=== PATIENT | male | born 1940 | race Native Hawaiian/Other Pacific Islander ===

== ENCOUNTER 2021-09-13 10:49 | Inpatient (IN) | payer OTHER ==
[~2021-09-13] VITALS: Ht 185.4 cm; Wt 98.0 kg
--- NOTE | 2021-09-13 13:02 | NUR ---
INFOMRED BY ADMISSIONS PT WAS HERE WITH HIS TO BE ADMITTED. INFOMRED PCT PT WAS IN ADMISSIONS AWAITING ADMINSSIONS
--- NOTE | 2021-09-13 13:45 | NUR ---
PT AND OT AT BS PERFORMING EVAUL AT THIS TIME. REMAINS AT BS
[2021-09-13 14:36] LABS: PLATELET COUNT 219 K/uL (142-355)
[2021-09-13 15:10] LABS: POTASSIUM 3.6 mmol/L (3.6-5.2)
[2021-09-13 15:36] VITALS: BP 94/59; TEMP 97.9; Ht 185.4 cm; Wt 98.0 kg
--- NOTE | 2021-09-13 16:00 | NUR ---
DR MULLER IN ROOM AT THIS TIME
[2021-09-13 20:00] VITALS: BP 91/52; TEMP 97.9
[2021-09-13] MEDS ORDERED: ALLO100T22 PO (20:52)
[2021-09-13] MEDS ORDERED: ALOGLIPTIN12.5 MG PO (20:53)
[2021-09-13] MEDS ORDERED: AMLODIPINE BESYLATE PO (20:53)
[2021-09-13] MEDS ORDERED: ELIQUIS5 MG PO (20:54)
[2021-09-13] MEDS ORDERED: FURO40TA93 PO (20:56)
[2021-09-13] MEDS ORDERED: GABA300C2 PO (20:57)
[2021-09-13] MEDS ORDERED: GLIP10TA55 PO (20:58)
[2021-09-13] MEDS ORDERED: PANTOPRAZOLE 40MG TA PO (20:59)
[2021-09-13] MEDS ORDERED: METO50TA27 PO (20:59)
[2021-09-13] MEDS ORDERED: LANTUS100 UNIT/M SC (21:07)
[2021-09-13] MEDS ORDERED: TAMSULOSIN0.4 MG PO (21:08)
--- NOTE | 2021-09-13 22:00 | NUR ---
ASSISTED PATIENT TO BEDSIDE COMMODE. PATIENT HAS A SMALL FORMED BOWEL MOVEMENT AND VOIDED WITHOUT DIFFICULTY. PATIENT ASSISTED BACK TO BED. NO ACUTE DISTRESS NOTED AT THIS TIME. CALL LIGHT WITHIN REACH. WILL CONTINUE TO MONITOR.
--- NOTE | 2021-09-14 04:48 | NUR ---
New Swing bed patient and I talked with Lizet about this patient yesterday and is a 81YOM from [facility] facility and is 6'1" at 222.4 lbs. and BMI at 29.28 and is overweight and IBW = 184+/-10% (166 to 202 lbs.) and kcal needs for IBW x 25 = 2100, x 30 = 2500, x 35 = 2900, x 40 = 3300 kcal/day, protein needs x .8 to 1.5 = 67 to 125 grams per day and fluids x 25 to 40 = 2100 to 2200 ml/cc per day and is 121% of IBW. Diagnosis of post op GB, Bile Duct Cancer, obstruction of bile duct, HTN, Physical Deconditioning, and receives allopurinol, norvasc, Lasix, neurotin, Gluctorol, Lantus and other medications and RD reviewed all medications; labs reveal RBC, Hgb, Hct, Na, Ca and albumin all depressed and RDW, Creat 1.8, gl 193, total bilirubin, ast 62, alk po4 213 and all elevated, and also Dx. of DM II, atrial fib, chronic anticoagulant, abruction sleep apnea, , CKD, hyperbilirubinemia, weakness, and ate 50% of [address] Recommendations: 1-Monitor Labs 2-PT to work with the patient 3-OT to work with the patient 4-Make sure hydrated 5-Add MVI, 6-Add Vitamin C 500 mg BID 7-Add ZNSO4 220 mg per day and d/c in 14 days 8-Add Protein 30 ml/cc BID 9-Add a supplement if eating <75% of meals- a diabetic supplement 10-Add an appetite stimulant if not eating 75% of meals 11-Suggest a Dibaetic High Fiber diet with HBV protein foods Renal RD available as needed.
[2021-09-14 08:00] VITALS: BP 97/60; TEMP 98.3
--- NOTE | 2021-09-14 18:15 | NUR ---
LATE ENTRY 1700- PATIENT HAS HAD SEVERAL EPISODES OF HYPOTENSION WITH 1ST BLOOD PRESSURE READING 97/60, HR-81. MADE AWARE THAT LOPRESSOR AND NORVASC WERE HELD SECONDARY TO DECREASE IN PRESSURE AND FLOMAX AND LASIX GIVEN DUE TO PATIENTS SWELLING IN HIS ABDOMEN AND SCROTUM. ORDER GIVEN TO MONITOR B/P CLOSELY. PATIENT WAS IN HIGH FOWLERS POSITION IN THE BED WHEN ROUNDING AND STATED " I AM FEELING OK". REPEAT BLOOD PRESSURE AT LUNCH REVEALED A B/P 86/52. PATIENT IN NO ACUTE DISTRESS ALERT AND WATCHING TV. NOTIFIED AND STATED TO WATCH PATIENT. THIS AFTERNOON PATIENT NOTED RESTING QUIETLY IN BED WITH EYES CLOSED. REPEAT BLOOD PRESSURE AT 1650 SHOWED A B/P OF 84/49. NOTIFIED AND NEW ORDERS WERE GIVEN TO HOLD ALL MEDS, START IV AND GIVE A 1 LITER NS BOLUS OVER 4 HRS. MEDICATIONS WILL BE REVIEWED AGAIN IN THE MORNING. IV 20G X 1 ATTEMPT WITH NO SUCCESS TO THE RIGHT WRIST; IV 22G TO THE LEFT WRIST X1 ATTEMPT SUCCESSFUL WITH FLUIDS STARTED AT THIS TIME. PATIENT TALKING ON THE PHONE WITH FAMILY AND IS ALERT. WILL REASSESS POST FLUIDS FOR INCREASE IN BLOOD PRESSURE.
[2021-09-14 20:00] VITALS: BP 98/60; TEMP 99.2
--- NOTE | 2021-09-14 20:00 | NUR ---
VITAL SIGNS WERE TAKEN AT THIS TIME. BP IS 98/60. PT IS RECEIVING NS BOLUS AT 250 ML/HR FOR 4 HOURS. BLOOD SUGAR WAS CHECKED AND WAS 144. PM ASSESSMENT WAS DONE.
--- NOTE | 2021-09-14 21:11 | NUR ---
PCT AT BEDSIDE TO ASSIST PT TO BSC.
--- NOTE | 2021-09-14 23:30 | NUR ---
L LITER OF NS HAS COMPLETED INFUSION.
--- NOTE | 2021-09-15 02:00 | NUR ---
PT AWAKE AND STATES THAT HE IS FEELING BETTER. NOTED S/P SURGICAL GALLBLADDER REMOVED HEALING INCISIONS. INCISIONS ARE INTACT. NO REDNESS OR DRAINAGE NOTED AT THIS SITES.
[2021-09-15 20:00] VITALS: BP 102/58; TEMP 98.6
--- NOTE | 2021-09-15 21:07 | NUR ---
PT WITH COMPLAINTS OF FEELING CONSTIPATED. BOWEL SOUNDS ARE SLUGGISH IN LOWER ABDOMEN. PT WAS GIVEN WARM PRUNE JUICE. WILL MONITOR FOR RESULTS. PT STATES HE HAS NOT HAVE BM IN LAST TWO DAYS.
--- NOTE | 2021-09-15 23:36 | NUR ---
PT STATES HE IS FEELING SOME BETTER AFTER PRUNE JUICE. PT WAS SERVED APPLE JUICE TO INCREASE FIBER. MONITORING BLOOD SUGAR. PT TOOK PO BS MED PRIOR THIS SHIFT.
--- NOTE | 2021-09-16 02:50 | NUR ---
PT REPORTS HAVING A BOWEL MOVEMENT. PT STATES THAT HE IS "FEELING MUCH BETTER".
--- NOTE | 2021-09-16 05:02 | NUR ---
PT RESTING WTTH EYES CLOSED.
[2021-09-16 08:00] VITALS: BP 88/57; TEMP 98
--- NOTE | 2021-09-16 19:00 | NUR ---
LATE ENTRY: [facility] PATIENT WAS IN LOW FOWLERS POSITION RESTING WITH EYES CLOSED. LATE ENTRY: 819 PATIENT IN HIGH FOWLERS POSITION EATING BREAKFAST. PT V/O HE IS UNABLE TO EAT THE ANDERSON, HYDROLOGIC ENGINEER OFFERED TO CALL DIETARY FOR A DIFFERENT TYPE OF MEAT, PT REFUSED AT THIS TIME. AM ASSESSMENT COMPLETED. PATIENT'S DEPENDS WAS DRY. OFFERED TO ASSIST PT TO BSC, PT REFUSED BUT STATED HE WOULD CALL STAFF WHEN HE NEEDED ASSISTANCE. IV TO L WRIST FLUSHED WITH NS 10ML WITHOUT DIFFICULTY, NO REDNESS, EDEMA OR DRAINAGE NOTED TO IV SITE. STERI STRIPS TO ABDOMEN COVERED WITH TEGADERM AND INTACT WITH NO REDNESS NOTED TO SURGICAL SITE. PATIENT DENIES ANY PAIN, NEEDS OR C/O AT THIS TIME. CALL LIGHT AND BEDSIDE TABLE WITH PERSONAL BELONGINGS WITHIN REACH. DURING AM SHIFT, PATIENT CALLED AND REQUESTED STAFF TO CHANGE HIS DEPENDS ON 2 SEPERATE OCCASIONS. HYDROLOGIC ENGINEER QUESTIONED PATIENT ON WHY HE DID NOT CALL FOR ASSISTANCE TO THE BSC AND REMINDED HIM THE STAFF IS HERE TO ASSIST HIM WITH TOILETING NEEDS, PT V/O UNDERSTANDING. PATIENT'S BLOOD SUGAR WAS 69, PROVIDED ORANGE JUICE X2, GLIPIZIDE AND SEMGLEE HELD THIS AM. @ 1605 PATIENT IN HIGH FOWLERS POSITION SPEAKING ON HIS PERSONAL CELL PHONE. NAD NOTED WITH PATIENT AT THIS TIME.
[2021-09-16 21:20] VITALS: BP 97/52; TEMP 97.6
--- NOTE | 2021-09-17 02:07 | NUR ---
ROUNDS MADE. PT STATED THAT HES WASN"T FEELING WELL". JUST FEEL FUNNY. NO COMPLAINTS OF ANY PAIN OR DISCOMFORT. STATED THAT "HE JUST HASN'T FELT WELL TODAY". PT IS NOT EATING WELL. PT STATES, "HE DOESNT LIKE THE FOOD HERE AT THIS HOSPITAL". BLOOD SUGAR WAS CHECKED AND THE READING WAS 123. PT WAS ASSESSED. LUNGS CLEAR. HR IS REGULAR. ABDOMEN WITH ACTIVE BS. ABLE TO MOVE ALL EXREMITIES. BLOOD PRESSURE WAS CHECKED AND READING WAS 96/50. PT HAS HAD LOWER BP SINCE ADMISSION. LOPRESSOR IS NOT BEING GIVEN BECAUSE OF LOW BP. PT WAS GIVEN 1 CUP OF APPLE JUICE . PT STATED THAT HES WAS FEELING BETTER AFTER JUICE AND BEING REPOSITIONED IN BED. BEDSIDE TABLE AND CALL LIGHT PLACED IN EASY REACH.
--- NOTE | 2021-09-17 05:30 | NUR ---
PT INCONTINENT OF URINE. PT WAS CHANGED/CLEANED. PT REPOSITIONED IN BED. PT WAS GIVEN WATER TO DRINK. NO PROBLEMS WITH SWALLOWING. PT ABLE TO HOLD CUP HIMSELF..ASSESSED S/P SURGICAL SITES TO ABDOMEN. CLEAN AND DRY.
[2021-09-17 08:00] VITALS: BP 96/58; TEMP 99.8
--- NOTE | 2021-09-17 11:13 | NUR ---
09/17/21 1025 PHYSICAL THERAPY IN ROOM TO WORK WITH PATIENT.CC
--- NOTE | 2021-09-17 11:13 | NUR ---
09/17/21 1110 PT SITTING UP IN CHAIR PHYSICAL THERAPY IN ROOM,ENSURE GIVEN TO PATEINT AT HIS REQUEST.CALL LIGHT WITHIN REACH.CC
[2021-09-17 12:00] VITALS: BP 100/43; TEMP 98.7
--- NOTE | 2021-09-17 13:40 | NUR ---
09/17/21 1245 PT FAMILY PRESENT IN ROOM TO VISIT.ASSISTED PT BACK TO BED TOLERATED WELL.SON PRESENT IN ROOM STATED HE BROUGHT DAD SOME CHICKEN TO EAT BUT MADE HIM ALITTLLE SICK.CALL LIGHT WITHIN REACH.CC
--- NOTE | 2021-09-17 15:49 | NUR ---
09/17/21 1650 OT STATED PT REFUSED THERAPY THIS AFTERNOON SAID HE IS COLD AND JUST GOT BACK IN BED.BLANKET CARRIED TO ROOM FOR COMFORT.CALL LIGHT WITHIN REACH.CC
[2021-09-17 20:00] VITALS: BP 102/59; TEMP 98.5
[2021-09-18 08:00] VITALS: BP 111/65; TEMP 98.3
--- NOTE | 2021-09-18 08:35 | NUR ---
09/17/21 0820 RESTING IN BED E;YES CLOSED.NAD NOTED.CALL LIGHT WITHIN REACH.CC
--- NOTE | 2021-09-18 11:05 | NUR ---
09/18/21 1030 PT NOT FEELING WELL THIS AM DOESNOT WANT TO PARTICPATE WITH PHYSICAL THERAPY THIS MORNING.VS 99.1 89 94/48 93. NOTIFED NEW ORDERS RECEIVED FOR LABS AND CXR. 09/18/21 1100 PRESENT IN ROOM.LAB CAME IN COLLECT BLOOD FOR TEST.CC
[2021-09-18 11:09] LABS: PLATELET COUNT 192 K/uL (142-355)
[2021-09-18 11:28] LABS: POTASSIUM 4.2 mmol/L (3.6-5.2)
--- NOTE | 2021-09-18 13:59 | NUR ---
09/18/21 1350 RADIOLOGY NOTIFIED FOR PT TO BE TAKEN FOR EXRAY,PT REFUSED EARILER TO HAVE IT DONE.PT MEDICATED FOR PAIN AT THIS TIME MAY HELP RELAX PT PRIOR TO GOING FOR EXRAY.CC
--- NOTE | 2021-09-18 16:04 | NUR ---
09/18/21 1545 PT BREIF CHANGED WITH MODERATE URINE IN BRIEF.URINE COLLECTED IN CLEAN URINAL SENT TO LAB.BEDBATH GIVEN.SL TO RT WRIST WAS OUT APPLIED 2X2 SECURED WITH TAPE.CC
--- NOTE | 2021-09-18 17:04 | NUR ---
09/18/21 1650 SALINE LOCK STARTED TO RT AC 22GAUDGE TAPED AND SECURED WITH TEGADERM.TOLERATED WELL.CC
--- NOTE | 2021-09-18 17:07 | NUR ---
09/18/21 1645 NEW ORDERS PER FOR BOLUS OF FLUID AND RATE 125 TIMES 2 LITERS.MD PAVON OF EXVIANNEY AND UA.CC
--- NOTE | 2021-09-18 18:42 | NUR ---
09/18/21 1840 BOLUS IV NS INFUSING WITHOUT DIFFICULTY TO LT AC.CC
[2021-09-18 20:00] VITALS: BP 98/56; TEMP 98.6
[2021-09-19 08:00] VITALS: BP 91/59; TEMP 97.4
[2021-09-19 20:00] VITALS: BP 76/43; TEMP 98.3
[2021-09-20 08:00] VITALS: BP 91/56; TEMP 97.6
--- NOTE | 2021-09-20 13:08 | NUR ---
SPOKE TO MD REGARDING PT LABS NEW ORDERS GIVEN TO OBTAIN H/H EVRY FRIDAY UNLESS PT BECOMES SYMPTOMATIC THEN MD WILL NEED TO BE NOTIFIED. FOR MOR ORDERS. NEW ORDER GIVEN TO OBTAIN LABS FOR IRON, FOLATE, AND B12 LEVEL X 1 NOW
--- NOTE | 2021-09-20 17:31 | NUR ---
TB GIVEN TO LEFT FOREARM PER ORDER. PT TOLERATED WELL. WILL BE READ IN 48-72 HRS.
[2021-09-20 20:00] VITALS: BP 98/56; TEMP 99
--- NOTE | 2021-09-20 21:25 | NUR ---
PM MEDS GIVEN AT THIS TIME. PT TOLERATED WELL. PT WAS ABLE TO SWALLOW MEDS WHOLE AND GRAB MEDICINES AND WATER AFTER ENCOURAGED BY RECORDS COORDINATOR TO DO SO. PT. ABLE TO VERBALIZE UNDERSTANDING OF TASK AND NEEDS AT THIS TIME. PT IS A ONE PERSON ASSIST DURING MEDIDINE INTAKE. RECORDS COORDINATOR GRABBED WATER AND GAVE TO PT BUT PT WAS ABLE TO HOLD THE WATER FOR MEDICINE INTAKE AND PT. PUT WATER ON COUNTER BESIDE BED. PT WAS ABLE TO ADJUST INDEPENDENTLY TO A MORE COMFORTBALE POSITION IN BED. HEEL PROTECTORS BILATERALLY INTACT BY PT. 18 U OF INSULIN GIVEN DUE TO BS OF 375 ALONG WITH EVENING GLIPIZIDE.
--- NOTE | 2021-09-21 01:45 | NUR ---
IN PT'S ROOM TO CHANGE PT'S DEPENDS AT THIS TIME. PT. UNABLE AT THIS TIME TO GET UP THE BED SIDE COMMODE. COMPUTER DRAFTER AND LI CALDERON RN CHANGED PT WITH NEW DEPENDS AND UNDERPADDING UNDERNEATH PT. PT ABLE TO GRAB ON SIDE RAILS AFTER CUED BY COMPUTER DRAFTER FOR BRIEF CHANGE TO BOTH LEFT AND RIGHT SIDE INDEPENDENTLY. PT. HAS GOOD ATTITUDE AND COMPLIED WITH REQUEST BY COMPUTER DRAFTER. PT. STILL HAS RIGHT SIDED LEG WEAKNESS BUT HAS NOT COMPLAINED OF PAIN FROM THE AREA. CALAZIME CREAM APPLIED TO BUTTOCKS AT THIS TIME TO STAGE 1 PRESSURE ULCER. AREA INTACT BUT BLACK AREA IN CENTER AND ERRYTHEMIC AREAS ON THE OUTER CORNERS.
--- NOTE | 2021-09-21 02:30 | NUR ---
PT. CALLED NURSING STATION AT THIS TIME WANTING A FULL LINEN CHANGE DUE TO "IT FEELING WET UNDERNEATH HIM". PT REPETTIVELY SAYING "IT FEELS LIKE A RIVER UNDERNEATH ME" BED LINENS CHANGED AT THIS TIME. 2 PERSON ASSIST TO GET PT'S SHIRT OFF OF HIM TO GIVE HIM A CLEANS SHIRT. PT STATED " I CAN'T TAKE OFF MY CLOTHES BY MYSELF, I'M MESSED UP RIGHT NOW". WARE CARRIER ENCOURAGED PT TO AT LEAST TRY BUT ROM WAS LIMITED AND PT COMPLAINING OF BACK PAIN AT THIS TIME. PT STILL ABLE TO MOVE INDEPENDENTLY TO REACH SIDE RAILS ON BOTH SIDES FOR BED CHANGE. PT WAS SATISFIED AFTER THIS WAS DONE.
--- NOTE | 2021-09-21 05:50 | NUR ---
I met with patient, his and therapy were in the room 2 times, wants no parker and wants link sausage and ask nursing to add Ensure plus 4 x a day, if not eating add a MVI, likes fresh fruit and grape juice for the breakfast meal and commnicated to the wardrobe assistant to add to the diet card and notified nurse to ask MD to add the supplement. RD available as needed and IDT team meeting today with the patients. cell number.
[2021-09-21 08:00] VITALS: BP 96/53; TEMP 97.8
--- NOTE | 2021-09-21 18:03 | NUR ---
PT ALERT AND ORIENTED. AM MEDS ADMINISTERED ORDERED AND PT TOLERATED WELL, WITH NO DIFFICULTY SWALLOWING MEDS. PT GIVEN A BED BATH IN THE AM WITH THE ASSISTANCE OF OT PT SAT UP IN CHAIR AFTER BREAKFAST UNTIL AFTER LUNCH. PT ABLE TO FEED HIMSELF, WITH SET UP. PT IS A TWO PERSON ASSIST WHEN CHANGING AND ASSISTING TO BEDSIDE COMMODE. HAD BMX1 THIS SHIFT. NORMAL FORMED STOOLS. NO C/O CONSTIPATION/DIARRHEA. NO C/O PAIN/DISCOMFORT NOTED. PT HAS A BLISTER TO RIGHT HEEL, HEEL FLOATER PLACED ON FEET AND FEET ELEVATED ON PILLOW. REDDENED AREA NOTED TO LEFT SIDE OF BUTTOCKS AND SKIN TEAR NOTED, BARRIER CREAM APPLIED. PTS FAMILY AT BEDSIDE DURING THE DAY. PT CONTINUES TO HAVE IV SITE TO RIGHT FA INTACT WITH NO SWELLING OR REDNESS NOTED. CONTINUE TO MONITOR.
[2021-09-21 20:00] VITALS: BP 97/60; TEMP 97.9
--- NOTE | 2021-09-22 00:10 | NUR ---
PT AWAKE WATCHING TV WITH NO S/S OF ACUTE DISTRESS NOTED, 20G IV INTACT TO R FA, RESP RATE NONLABORED, PT TALKATIVE WITH STAFF, PPULLED PT UP IN BED X 2 NURSES THEN ASSISTED PT TO USE URINAL X 1 NURSE ASSIST(HELP WITH POSITIONING URINAL IN BED), REPOSITIONED IN BED TO L SIDE, HOB ELEVATED, WILL MONITOR, RAILS UP, BED IN LOW POSITION, CALL LIGHT IN REACH. PT REMAINS ALERT AND ORIENTED.
--- NOTE | 2021-09-22 02:00 | NUR ---
PT AWAKE IN BED WATCHING TV WITH NO S/S OF ACUTE DISTRESS NOTED, RESP RATE NONLABORED, IV INTACT TO R FA, DENIES ANY NEEDS, REPOSITIONED TO BACK IN BED, FEET ELEVATED ON PILLOW, WILL MONITOR CLOSELY, RAILS UP, BED IN LOW POSITION, CALL LIGHT IN REACH.
--- NOTE | 2021-09-22 05:00 | NUR ---
RESTING WITH EYES CLOSED, NO S/S OF PAIN OR DISTRESS NOTED, WILL MONITOR, RAILS UP, BED IN LOW POSITION, CALL LIGHT IN REACH.
[2021-09-22 08:00] VITALS: BP 99/61; TEMP 97.8
[2021-09-22 20:00] VITALS: BP 94/55; TEMP 97.6
[2021-09-23 08:00] VITALS: BP 113/55; TEMP 98
--- NOTE | 2021-09-23 11:03 | NUR ---
PT ASSISTED TO SIDE OF BED WITH ONE PERSON ASSIST, PT CAN PULL HIMSELF UP FROM LAYING SUPINE TO SITTING POSITION USING BED RAILS. PT CONTINUES TO HAVE A BLISTER ON RIGHT HEEL, HAS HEEL PROTECTORS ON. DECREASED REDNESS AND SWELLING NOTED TO SCROTUM. CONTINUES TO HAVE EDEMA TO LOWER EXTREMITIES. SKIN TEAR TO LEFT SIDE OF BUTTOCKS,INCREASED HEALING NOTED. DENIES ANY PAIN OR DISCOMFORT. PT WILL SIT UP ON THE SIDE OF THE BED TO EAT BREAKFAST, ATE 100% OF MEAL. PT EATS FRUIT BROUGHT IN BY FAMILY THAT IS STORED IN PT REFRIGERATOR. BARRIER CREAM APPLIED TO BUTTOCKS. AT BEDSIDE..
--- NOTE | 2021-09-23 18:22 | NUR ---
PT ASSISTED TO CHAIR FROM BED USING WALKER WITH ONE PERSON ASSIST AFTER LUNCH. GIVEN A BED BATH, CHANGED CLOTHES AND BED LINEN CHANGED. PT ABLE TO USE BED RAILS TO PULL HIMSELF UP TO THE SIDE OF THE BED AND THEN USES THE WALKER TO MOVE TO CHAIR AND VICE VERSA WITH THE ASSISTANCE OF ONE PERSON. PT HAD FAMILY AT BEDSIDE DURING DAY. DENIED ANY PAIN/DISCOMFORT. NAD NOTED. ALERT AND COHERENT.
[2021-09-23 20:00] VITALS: BP 93/60; TEMP 98.3
[2021-09-24 08:00] VITALS: BP 101/56; TEMP 98.6
--- NOTE | 2021-09-24 18:05 | NUR ---
PT RESTING IN BED. STATES THAT HE JUST DOESN'T FEEL WELL. PT ALSO REFUSED OT TODAY FOR SAME REASON. PATIENT RECEIVED A PAIN PILL AT 1200 FOR BUTTOCK PAIN. PATIENT A BIT SLUGGISH. VITALS WNL FOR PATIENT BP 112/58, HR 88, O2 95 AND BLOOD SUGAR 141. WILL CONTINUE TO MONITOR.
[2021-09-24 20:00] VITALS: BP 105/57; TEMP 99
[2021-09-25 08:00] VITALS: BP 129/59; BP 95/53; TEMP 98
--- NOTE | 2021-09-25 11:30 | NUR ---
PT SITTING IN BEDSIDE CHAIR WITH VISITING. PATIENT CALLED FOR ASSISTANCE TO GET TO BS. PATIENT REQUESTED THAT THERE BE TWO PEOPLE BE AT HIS SIDE FOR ASSISTANCE. HE STATED "I AM WEAK SINCE I HAVE BEEN IN HERE AND I FEEL LIKE I NEED AT LEAST TWO PEOPLE TO HELP ME SO I DONT FALL." PT REQIRED ONE PERSON ASSIST WITH STAND BY ASSISTANCE AND THE USE OF AN ASSISTIVE DEVICE SUCH HIS WALKER. PT ENCOURAGED TO DO MUCH FOR HIMSELF HE CAN BUT HAS STAND BY ASSIST. PT TOLERATED SLOW MOVEMENT WELL. HE RETURNED TO CHAIR FROM [facility]. DURING TOILETING A STAGE 2 WOUND TO HIS LEFT GLUTEAL FOLD THAT IS NOTICED AND IS APPROXAMETLY 3IN X 3IN WITH NO DEPTH. IT IS OPEN TO AIR AT THIS TIME. PT WAS CALM AND COOPERATIVE WITH STAFF DURING ASSISTANCE. HE IS ABLE TO DRINK ON HIS OWN WITHOUT DIFFICULTY. HE TOOK HIS MORNING MEDICATIONS WHOLE WITHOUT DIFFICULTY. HE HAS BEEN AWAKE MOST OF THE MORNING. WILL CONTNIUE TO MONITOR.
--- NOTE | 2021-09-25 15:45 | NUR ---
PT C/O PAIN 7/10 IN HIS RT HEEL. PRN NORCO 7.5/325MG GIVEN FOR PAIN
--- NOTE | 2021-09-25 16:25 | NUR ---
MEDICATION EFFECTIVE FOR RIGHT HEEL PAIN. PT IS NOW RESTING IN BED WITH HIS EYES CLOSED.
[2021-09-25 20:00] VITALS: BP 120/57; TEMP 97.9
--- NOTE | 2021-09-26 00:30 | NUR ---
PATIENT WAS GIVEN SOME WATER TO DRINK NAD ASSISTED IN MOVING UP IN THE BED. EARLIER THE PATIENT EXPRESSED LOWER BACK PAIN, PRN PAIN MEDICATION WAS GIVEN AND PATIENT REPORTED PAIN RELIEF 30MINS LATER/ PATIENT HAS HEEL PERTECTION ON BILATERAL HEELS. PATIENT IS RESTING QUIETLY
--- NOTE | 2021-09-26 04:36 | NUR ---
PATIENT WAS CHECKED IN ON. PATIENT WAS SLEEPING. BREATHING IS REGULAR NON LABORED
[2021-09-26 08:00] VITALS: BP 105/50; BP 107/61; TEMP 97.7; TEMP 98.7
--- NOTE | 2021-09-26 14:55 | NUR ---
PT ALERT AND ORIENTED. PT WILL SIT ON THE SIDE OF BED USING THE BED RAILS TO PULL UP ON, ONE PERSON ASSIST. CONTINUES TO HAVE BLUISH, MERCADO AND BLACK BLISTHER TO RIGHT HEEL. EDEMA NOTED TO SCROTUM, DECREASED SWELLING NOTED. STAGE 2 WOUND NOTED TO SACRUM, BARRIER CREAM APPLIED AND INTACT. PT ENCOURAGED TO USE BEDSIDE COMMODE WHEN NEED TO HAVE A BM. WITH ONE PERSON ASSIST PT WILL USE BEDSIDE COMMODE BUT NEED ASSISTANCE VOIDING IN URINAL. AM MEDS ADMINISTERED AND PT TOLERATED WELL WITH NO DIFFICULTY SWALLOWING.
--- NOTE | 2021-09-26 21:10 | NUR ---
PM MEDS GIVEN AT THIS TIME. PT. TOLERATED WELL. PT EDUCATED ON GETTING A U/A ON PT IF HE URINATES. NO S/S OF ACUTE DISTRESS NOTED AT THIS TIME. PT SITTING UP IN A HIGH FOWLERS POSITION WITH SIDE RAILS UP TIMES TWO WITH BED IN LOWEST POSITION. WILL MONITOR FOR ANY FURTHER ACUTE CHANGES.
[2021-09-27 08:00] VITALS: BP 113/59; TEMP 97.5
--- NOTE | 2021-09-27 09:33 | NUR ---
i s/w Dilcia Kline [phone] @ [facility] today at wifes request for possible LTC placement. She stated she does not have any available beds at the moment but she will put him on her waiting list.
--- NOTE | 2021-09-27 10:03 | NUR ---
PT APPEARS TO BE CONFUSED TODAY AND HAS TO BE RE-ORIENTED TO TIME, PLACE AND SITUATION. PT C/O PAIN BUT UNABLE TO DESCRIBE LOCATION OF PAIN, PT STATED "MY MUSCLES HURT ALL OVER." COLLECTED A UA ON PT. PT VOIDED IN URINAL WITH ASSISTANCE. PT USUALLY WILL NOTIFY NURSING STAFF WHEN NEED TO VOID IN URINAL. ON FRIDAY AND TODAY PT DID NOT NOTIFY STAFF, VOIDED AND WET BED AND CLOTHES AND HAD TO BE CHANGED. ENCOURAGED PT TO SIT ON THE SIDE OF BED TO EAT BREAKFAST AND WITH ASSISTANCE PT COMPLIED. AWAITING UA RESULTS.
[2021-09-27 12:36] LABS: POTASSIUM 3.6 mmol/L (3.6-5.2)
[2021-09-27 13:15] LABS: PLATELET COUNT 194 K/uL (142-355)
--- NOTE | 2021-09-27 17:24 | NUR ---
PT CONTINUES TO BE CONFUSED AND REFUSED TO SIT UP ON THE SIDE OF BED TO EAT DINNER, "I WAS SLEEPING GOOD, JUST LET ME SLEEP AND LEAVE ME ALONE." SET UP PT DINNER AND ASSISTED PT TO SIT UP IN BED, HIGH FOWLERS TO EAT DINNER. PT COMPLIED. NAD NOTED. DENIES ANY PAIN/DISCOMFORT. PT IRRITABLE AND UNCOOPERATIVE THIS SHIFT WITH NURSING STAFF. PT DID NOT USE CALL LIGHT TO NOTIFY NURSING STAFF OF NEED TO VOID IN URINAL, INSTEAD VOIDED IN BRIEF. PT CHANGED AND CLEANED.
[2021-09-27 20:28] VITALS: BP 103/57; TEMP 98.8
--- NOTE | 2021-09-28 02:22 | NUR ---
PT RESTING IN BED WITH EYES CLOSED. PRN PAIN MED GIVEN WITH HS MEDS FOR GENERALIZED PAIN WITH RELIEF NOTED. PT DRANK 360cc GRAPE JUICE WITH HS MEDS. PT CONT TO HAVE INCONTINENT EPISODES. PT WITH LIGHT SNORING RESP AT THIS TIME. NO S/S OF DISTRESS. CALL LIGHT IN EASY REACH.
[2021-09-28 08:00] VITALS: BP 99/62; TEMP 98.3
--- NOTE | 2021-09-28 15:00 | NUR ---
LATE ENTRIES: 1342 PATIENT REPORTED TO THERAPIST JOSH HE IS HURTING IN HIS RIGHT UPPER ABDOMINAL/RIB AREA. 1400 SPOKE WITH PATIENT REGARDING HIS PAIN, HE REPORTS THE PAIN IS IN LEFT UPPER RIB/UPPER ABDOMINAL PAIN WITH PAIN OF 5/10 NUMERIC PAIN SCALE, DESCRIBED THE PAIN ACHY. PT STATED "FEELS LIKE ONE OF THOSE STENS ARE PUTTING PRESSURE ON SOMETHING." PATIENT DENIES ANY CARDIAC STENTS. 1425 REPORTED PATIENT'S PAIN TO DR. MULLER AND OF PATIENT'S CRE SWAB RESULTS OF ENTEROBACTER. DR. MULLER INSTRUCTED FAMILY PROGRAM SPECIALIST TO NOTIFY INFECTION CONTROL OF SAME. 1445 PATIENT STATES PAIN IN RIGHT RIB AREA IS STILL A 5/10 ON NUMERIC PAIN SCALE. 1500 DR. MULLER AND NURSE ALFONSO OF UR DEPT SPEAKING AT NURSES STATION REGARDING PATIENT'S NEW ONSET PAIN TO RIGHT UPPER ABDOMEN/UPPER RIB AREA. RECEIVED NEW ORDERS FROM DR. MULLER FOR A CT ABDOMEN/PELVIS WITH CONTRAST, NOTED AND CARRIED OUT. 1508 NOTIFIED NURSE MELITON OF INFECTION CONTROL OF PATIENT'S CRE SWAB RESULTS OF ENTEROBACTER. 1525 RECEIVED NEW ORDERS FROM INFECTION CONTROL TO PLACE PATIENT ON CONTACT PRECAUTIONS UNTIL HE IS DISCHARGED, NOTED AND CARRIED OUT.
--- NOTE | 2021-09-28 15:30 | NUR ---
PATIENT BEGAN DRINKING CONTRAST AT THIS TIME RADIOLOGY PROVIDED.
--- NOTE | 2021-09-28 15:52 | NUR ---
NURSE MELITON RN, OF INFECTION CONTROL CALLED AND ADVISED DR. MULLER INFORMED HER PATIENT DOES NOT NEED THERAPEUTIC TREATMENT FOR THE ENTEROBACTER.
--- NOTE | 2021-09-28 16:17 | NUR ---
s/w laina jean-baptiste @ [facility] [phone] on pts cre test result dated 09/13/21 as requested by Veena Villegas RN Inf Control.
--- NOTE | 2021-09-28 16:40 | NUR ---
NOTIFIED OF UNSTAGEABLE ON PT LT BUTTOCK. WOUND BED WITH LARGE AMOUNT OF SLOUGH NEW ORDER GIVEN TO CLEAN WOUND WITH NS PAT DRY APPLY SANTYL TO AREAS OF SLOUGH COVER WITH 4X4 SECURE WITH DRY DRESSING AND TAPE. LT BUTTOK WOUND BED MEASURES 4.3CMX 6.6CM X UTD SLOUGH AREA MEASURES 3.5CMX2.5CM ORDER CARRIED OUT. NOTIFIED OF DTI TO RT HEEL MEASURES 8.8CM X 11CM NEW ORDER GIVEN TO APPLY SKIN PREP TO DARK AREA OF RIGHT HEEL BID.
--- NOTE | 2021-09-28 18:54 | NUR ---
0930 PT ASSISSTED TO C MAX ASSIST X2 . PT HAD LARGE BM. WHILE PT WAS UP SPONGE BATH WAS GIVEN, MAX ASSIST X2. 1130 IDT ROUNDS WERE CONDUCTED AND PT STATED HE HAD HIS REMOVE THE PINK WEDGE THAT THE NURSE PLACED BEHIND HIM TO PREVENT PRESSURE TO BUTTOCK. PT STATED THAT THE WEDGE CAUSED HIM PAIN PT WAS ENCOURAGED TO STAY OFF OF HIS BUTTOCK. 1530 NOTIFIED PT WAS C/O PAIN IN HIS CHEST CAUSED BY "STENTS BEING BENT WHEN THE WEDGE WAS PLACED BEHIND HIM. NEW ORDER GIVEN FOR CT SCAN. 1600 RAD IN PT ROOM WITH PO CONTRAST. 1625 PT COMPLETED PO CONTRAST AND RAD WAS NOTIFIED. 1745 PT TO RAD VIA WC WITH RAD STAFF 1755 PT RETURNED FROM RAD VIA WC PT ASSISTED TO BED WITH MAX ASSIST X2. PT REQUESTED URINAL MULTIPLE TIMES AND WAS ASSISTED WITH URINAL. PT WAS NOT ABLE TO VOID. BRIEF WAS PUT ON PT AND HE WAS ASSISTED TO A COMFORTABLE POSITION EACH TIME. WITH MAX ASSIST X2. PT WAS ENCOURAGED TO PARTICIPATE WITH REPOSITIONING
[2021-09-28 20:00] VITALS: BP 97/55; TEMP 97.9
--- NOTE | 2021-09-29 02:42 | NUR ---
PATIENT IS RESTING QUIETLY. AT BEDTIME PATIENT DENIED ANY PAIN AND WAS OFFERED A SNACK OR A DRINK. PATIENT ACCEPTED GRAPE JUICE, AND DENIED ANY FOOD. PATIENT IS NOW RESTING WITH EYES CLOSED AND BREATHS ARE STEADY AND EVEN
--- NOTE | 2021-09-29 04:47 | NUR ---
PATIENT IS RESTING QUIETLY. PATIENT DENIES ANY PAIN. PATIENT REFUSED TO BE TURNED ON HIS SIDE
[2021-09-29 08:00] VITALS: BP 95/62; TEMP 98.1
--- NOTE | 2021-09-29 16:54 | NUR ---
PT RESTED WELL THROUGHOUT THE DAY. NO COMPLAINTS OF PAIN VOICED. WOUND CARE COMPLETED ON LEFT BUTTOCK AND RIGHT HEEL. PT TOLERATED WELL. STATES THAT HE'S FEELING BETTER. PT HAS BEEN UP TO [facility] WITH ASSISTANCE THROUGHOUT THE DAY AND TURNED Q2 AND ON REQUEST. NAD NOTED. WILL CONTINUE TO MONITOR.
[2021-09-29 20:17] VITALS: BP 101/64; TEMP 99
--- NOTE | 2021-09-29 21:28 | NUR ---
PATIENT IN BED RESTING IN LOW FOWLERS UPON ENTRY. PATIENT IS ALERT AND ORIENTED.NO SIGNS OR SYMPTOMS OF DISTRESS AT THIS TIME. NO SOB NOTED. SN CLEANSED AND REDRESSED WOUND TO RIGHT HEEL PER MD ORDERS. PATIENT TOLERATED WELL. WOUND ON LEFT BUTTOCKS IS CLEAN DRY AND INTACT. WILL CONTINUE TO MONITOR.
--- NOTE | 2021-09-29 23:17 | NUR ---
LATE ENTRY: PATIENT WAS FOUND BY NURSE IN THE FLOOR BESIDE THE BSC. PATIENT REPORTED NO PAIN AND UPON ASSESMENT THERE WAS NO ABRASION OR WOUND FOUND. PATIENT VITALS ARE STABLE AND ER MD NOTIFIED. MD ASSESED PATIENT. NO FURTHER ORDERS NOTED. PATIENT IS ALERT TO SELF, BIRTHDATE, AND PALCE
--- NOTE | 2021-09-30 06:37 | NUR ---
Patient is in the Swing Bed Program and I visited iwth the patient and is pleased with the meals and RD available as needed.
--- NOTE | 2021-09-30 09:35 | NUR ---
Swing Bed and visited iwth patient on and is on a Regular diet and is pleased with meals. RD available as needed.
--- NOTE | 2021-09-30 10:32 | NUR ---
PT RESTING IN BED WITH NO COMPLAINTS OF PAIN. PT TOOK MEDS WITHOUT INCIDENT. NEURO CHECKS IN PROGRESS DUE TO RECENT FALL. PT NOTED TO HAVE NEW ONSET OF DIARRHEA; 3 WATERY STOOLS WITHIN PAST HOUR. DR. MULLER NOTIFIED. NEW ORDER FOR STOOL SAMPLE AND CHOLESTYRAMINE WRITTEN AND CARRIED OUT. AT BEDSIDE. NAD NOTED. WILL CONTINUE TO MONITOR.
--- NOTE | 2021-09-30 14:57 | NUR ---
PT HAD ONE EPISODE OF VOMITING AT 1155. PT HAS HAD MULTIPLE LOOSE STOOLS SINCE TAKING CHOLESTYRAMINE. DR. MULLER NOTIFIED. NEW ORDER FOR IV ANTIBIOTICS, ANTI-NAUSEA AND ANTIDIARRHEAL MEDICATION WRITTEN. NEW IV SITE OBTAINED TO LEFT ARM; 22G X'S ONE ATTEMPT AT 1235. PT TOLERATED WELL. NEW ORDERS INITIATED. NO COMPLAINTS OF PAIN. NAD NOTED. WILL CONTINUE TO MONITOR.
--- NOTE | 2021-09-30 15:28 | NUR ---
PT REASSESSED SINCE NEW ORDERS INITIATED. PT STATES THAT HE FEELS BETTER. HE'S HAD TWO TEARFUL EPISODES WHILE DISCUSSING PAST WHEN HE WAS IN [place]. PT RECOVERS QUICKLY. NAD NOTED. WILL CONTINUE TO MONITOR.
--- NOTE | 2021-09-30 18:33 | NUR ---
PT RESTING IN BED AWAKE. NO COMPLAINTS OF PAIN. WOUND TO LEFT BUTTOCK ASSESSED, CLEANED AND DRESSED ORDERED. WOUND TO RIGHT HEEL ASSESSED AND RE-WRAPPED. BLISTERED RIGHT HEEL IS STILL INTACT. PT TOLERATED WELL. NAD NOTED.
[2021-09-30 21:35] VITALS: BP 100/53; TEMP 98.1
[2021-10-01 01:35] VITALS: BP 121/60; TEMP 98.1
--- NOTE | 2021-10-01 02:46 | NUR ---
PATIENT IN BED RESTING WITH EYES CLOSED. PT RIGHT HEEL CLEANED AND DRESSED. PATIENT TOLERATED WELL. PATIENT HAS NO COMPLAINTS OR CONCERNS AT THIS TIME. WILL CONTINUE TO MONITOR.
[2021-10-01 05:35] VITALS: BP 122/62; TEMP 98.1
[2021-10-01 08:00] VITALS: BP 100/30; TEMP 97.6
--- NOTE | 2021-10-01 08:30 | NUR ---
PT LAYING IN BED IN LF RESTING QUIETLY. NAD NOTED. PT AM ANTIBIOTICS STARTED.
--- NOTE | 2021-10-01 18:18 | NUR ---
PT'S WOUND TO LEFT BUTTOCKS CLEANSED WITH NS. SANTYL APPLIED TO SLOUGH AREA AND ISLAND DRESSING APPLIED PER MD ORDERS. PT TOLERATED WELL WITHOUT DIFFICULTY. DTI TO RIGHT HEEL CLEANSED WITH NS AND SKIN PREP APPLIED PER MD ORDERS. PT TOLERATED WELL WITHOUT DIFFICULTY. PT ASSISTED UP IN BED, DEPENDS CHANGED X 2 PERSON ASSIST. PT DENIES ANY FURTHER NEEDS AT THIS TIME.
[2021-10-01 20:00] VITALS: BP 97/60; TEMP 97.7
--- NOTE | 2021-10-02 02:30 | NUR ---
PATIENT RESTING QUIETLY WITH EYES CLOSED, DENIES ANY COMPLAINTS AT THIS TIME. PATIENT ALERT AND ORIENTED X 3. NO ACUTE DISTRESS NOTED. CALL LIGHT WITHIN HIS REACH. WILL CONTINUE TO MONITOR.
[2021-10-02 08:00] VITALS: BP 100/63; TEMP 97.6
--- NOTE | 2021-10-02 09:33 | NUR ---
IN TO GIVE AM MEDS. PT TOOK MEDS WITHOUT DIFFICULTY. NAD NOTED. NO COMPLAINTS OR REQUESTS AT THIS TIME. BED LOW AND LOCKED. SIDE RAILS UP X2. CALL LIGHT WITHIN REACH.
--- NOTE | 2021-10-02 12:25 | NUR ---
PT RESTING IN BED. NAD NOTED. NO COMPLAINTS OR REQUESTS AT THIS TIME.
--- NOTE | 2021-10-02 13:17 | NUR ---
VERBAL ORDER FROM DR. MULLER TO OBTAIN CBC.
[2021-10-02 13:27] LABS: PLATELET COUNT 136 K/uL (142-355)
--- NOTE | 2021-10-02 16:15 | NUR ---
CLEANED PT'S LEFT BUTTOCK AREA WITH NS. SANTYL APPLIED TO SLOUGH AREA AND COVERED WITH DRESSING. RIGHT HEEL CLEANED WITH NS AND SKIN PREP APPLIED. PT TOLERATED WOUND CLEANING AND DRESSING WITHOUT DIFFICULTY. NO OTHER COMPLAINTS OR REQUESTS AT THIS MOMENT. NAD NOTED. BED LOW AND LOCKED. CALL LIGHT WITHIN REACH.
--- NOTE | 2021-10-02 17:30 | NUR ---
CHANGED PT'S BRIEF WITH 2 PERSON ASSIST. PT HAS NO COMPLAINTS OR REQUESTS. BED IS LOW AND LOCKED. SIDE RAILS UP X2. CALL LIGHT WITHIN REACH.
[2021-10-02 20:00] VITALS: BP 100/54; TEMP 98
[2021-10-03] VITALS (12 sets, daily range): BP systolic 97–116; BP diastolic 64–76; TEMP 97.6–98.4
--- NOTE | 2021-10-03 02:38 | NUR ---
PATIENT HAS AN ORDER TO TRANSFUSE 2 UNITS OF PRBCS. THE FIRST UNIT WAS STARTED AT THIS TIME AND RAN AT 75 ML/HR. MONITORED THE PATIENT FOR THE FIRST 15 MINUTES AT THE BEDSIDE AND NO ACUTE DISTREDD NOTED AND PATIENT DENIES ANY SIGNS OR SYMPTOMS OF A REACTION AT THIS TIME AND TOLERATING PRBCS WELL. AFTER FIRST 15 MINUTES OF TRANSFUSION PATIENT DENIES ANY COMPLAINTS AT ALL AT THIS TIME. TRANSFUSION RATE INCREASED TO 125 ML/HR. CALL LIGHT WITHIN REACH AND WILL CONTINUE TO MONITOR.
--- NOTE | 2021-10-03 13:28 | NUR ---
Patient has an appointment with his oncologist Dr. Varun Mart on 10/09/21 @ 11am. [address] [place] [id number]. Senior Systems Software Engineer spoke with Jenifer in therapy and she said that he could go by private vehicle if someone from [facility]'s office could help get him out of the car. Senior Systems Software Engineer spoke with [employer] on today and she said that they would have someone available to help. Senior Systems Software Engineer called patients the above was explained, as well as the cost of transportation, and that she would have assistance in putting him in and out of the vehicle. She will call back friday10/08/21 with time she will be here to pick him up. Patient was also notified and address and phone number as well as appointment time reminder left for his to pharmacy picking technician on 10/04/21 when she comes to visit. Patient is aware that marketing underwriter told she would leave her the address phone nuber, and time reminder with patient so she could pick it up.
--- NOTE | 2021-10-03 14:08 | NUR ---
patient had 2 IVs. antibiotics running to a 22G in left forearm and a 20G in right hand. left forearm IV began to leak after antibiotics ran so it was removed
[2021-10-03 14:23] LABS: PLATELET COUNT 184 K/uL (142-355)
--- NOTE | 2021-10-03 19:19 | NUR ---
PATIENT HAS RECEIVED HIS 2ND UNIT OF BLOOD TODAY. WHEN ENTERING ROOM AT 1820 TO CHECK ON BLOOD, PATIENT STATED THAT HE HAD A BOWEL MOVEMENT. NURSE MARIA T ASSISTED IN THE CLEANING OF PATIENT AND DRESSING ON LEFT BUTTOCK CHANGED.
[2021-10-04 00:57] LABS: PLATELET COUNT 159 K/uL (142-355)
--- NOTE | 2021-10-04 08:55 | NUR ---
PATIENT HAD A BOWEL MOVEMENT AND CLEANED. PATIENT V/O THE SAUSAGE MADE HIM SICK AND REQUESTED ANDERSON, NOTIFIED DIETARY AND PROVIDED SAME TO PATIENT.
[2021-10-04 09:22] VITALS: BP 101/73; TEMP 97.9
--- NOTE | 2021-10-04 11:20 | NUR ---
PATIENT HAD A 2ND BM AND CLEANED, DRESSING TO LEFT BUTTOCKS CLEANED, SANTYL APPLIED AND COVERED WITH BORDER GAUZE. PATIENT TOLERATED WELL.
--- NOTE | 2021-10-04 12:10 | NUR ---
PATIENT'S AT BEDSIDE FEEDING PATIENT PER HIS REQUEST. BOTH DENY ANY NEEDS OR C/O AT THIS TIME. CALL LIGHT WITHIN REACH AND BOTH ENCOURAGED TO CALL.
--- NOTE | 2021-10-04 17:20 | NUR ---
PATIENT CLEANED AFTER BM, SOILED DRESSING TO LEFT UPPER BUTTOCKS REMOVED, WOUND CLEANED WITH NS, PATTED DRY, AND SANTYL APPLIED TO SLOUGH AREA WITH 4X4 AND DUODERM APPLIED OVER WOUND. WOUND BED MEASURED 3.9CM X 5.9 X UTD, SLOUGH AREA MEASURED 1.8CM X 3.4CM. SCROTUM IS NOTED TO BE MORE SWOLLEN AND REDDENED THAN DURING AM ASSESSMENT. SKIN BARRIER APPLIED TO SCROTUM AND ELEVATED. SKIN BARRIER APPLIED TO BUTTOCKS WELL. FOAM HEEL PROTECTORS REMOVED AND SKIN PREP APPLIED TO LEFT FOOT AND RIGHT FOOT AND RIGHT HEEL WRAPPED WITH MAGDA, FOAM HEEL PROTECTORS PLACED ON PAM FEET. CALL LIGHT AND BEDSIDE TABLE WITH PERSONAL BELONGINGS WITHIN PATIENTS REACH.
--- NOTE | 2021-10-04 17:55 | NUR ---
PATIENT REFUSED HIS DINNER MEAL. PER PATIENT'S REQUEST, CALLED DIETARY AND REQUESTED A FRUIT TRAY, SAME PROVIDED TO PATIENT.
--- NOTE | 2021-10-04 18:17 | NUR ---
PATIENT CALLED AND ADVISED HE IS FINISHED WITH HIS DINNER. PATIENT REPOSITIONED ONTO LEFT SIDE WITH PILLOWS PLACED BEHIND PATIENT'S TORSO TO PROMOTE HEALING TO LEFT UPPER BUTTOCKS.
--- NOTE | 2021-10-05 01:20 | NUR ---
PT RESTING QUIELTLY IN BED WITH EYES CLOSED RESPIRATION EVEN AND UNLABORED. PT ALERT TO VERBAL STIMULATION. PT VOICE NO COMPLAINTS OF PAIN OR DISCOMFORT AT PRESENT. PT REQUIRES ASSISTANCE WITH ADLS, LOCOMOTION, AND TRANFERING. PT INCONTIENT OF BOWEL AND BLADDER. SWELLING NOTED IN PT SCROTUM MD AWARE OF SWELLING. PT VERBALIZE "THIS HAS HAPPEN BEFORE" PT HAS HARD LUMP IN RIGHT SCROTUM SACK. PT DRESSING TO SACRUM AND RIGHT FOOD CLEANED AND CHANGED PER ORDERS. PT TOLERATED WELL. PT VERBALIZED THAT HER HAS AN UPCOMMING APPOINTMENT WITH OUTSIDE DOCTOR THAT HE DOESN'T WANT TO MISS. PT CONTINUES ON ABTX THERAPY NO ADVERSE REACTION NOTED WILL CONTINUE TO MONITORE. NO ACUTE DISTRESS NOTED.
[2021-10-05 08:00] VITALS: BP 110/68; TEMP 98.1
--- NOTE | 2021-10-05 10:23 | NUR ---
PT NOTED TO HAVE SOFT STOOL THAT HAS CAME OUT OF HIS BREIF. LAURA, PCT AND MYSELF IN TO CLEAN PT UP. DURING PT'S DEPENDS CHANGE PT STATES "THEY WENT IN AND SCOPED ME TWO TIMES AND THEY SHOULD HAVE TOOK MY GALLBLADDER OUT THE FIRST TIME INSTEAD OF WAITING UNTIL IT GOT WORSE, NOW I'VE GOT TO GO SEE IF I HAVE SOME KIND OF CANCER BECAUSE THEY DIDN'T TAKE THAT OUT RIGHT AWAY" PT CON'T TO COMPLAIN ABOUT FREQUENT BOWEL MOVEMENTS AND STATING THE ANTIBIOTICS ARE CAUSING IT. INFORMED PT WE WOULD NOTIFY THE DOCTOR OF HIS C/O. PT VERBALIZES UNDERSTANDING AT THIS TIME.
--- NOTE | 2021-10-05 10:45 | NUR ---
TITO HAMILTON SWING BED COORDINATOR NOTIFIED ABOUT PT CALLING 3 TIMES BEFORE 0900 TO SAY HE HAD USED THE BATHROOM IN HIS BREIF AND NEEDED TO BE CLEANED UP. ALSO NOTIFIED HER THAT PT IS ADAMANT THAT ANTIBIOTICS ARE THE CAUSE OF ALL THE FREQUENT STOOLS.
--- NOTE | 2021-10-05 12:30 | NUR ---
PT C/O ANTIBIOTICS CAUSING HIS FREQUENT BM'S AND REFUSING MED. NOTIFIED.
--- NOTE | 2021-10-05 12:59 | NUR ---
CALLED TO PT'S ROOM. PT AGAIN STATES HIS CONCERN ABOUT ANTIBIOTICS CAUSING HIM TO HAVE FREQUENT BM'S AND THAT EVERY TIME HE EATS HE "POOPS" ON HISSELF. PT REMINDED THAT YES IT COULD BE THE ANTIBIOTICS BUT THAT HE WAS HAVING THE LOOSE STOOLS PRIOR TO ANTIBIOTICS BEING STARTED AND THAT SOMETIMES AFTER HAVING YOUR GALLBLADDER OUT LIKE HE HAS RECENTLY THAT CAN UNFORTUNATELY BE A SIDE EFFECT. DR. TAPIA NOTIFIED OF PT'S CONTINUED C/O'S ABOUT ANTIBIOTICS. REC'D ORDERS TO STOP IV FLAGYL AND STOP IV CIPRO.
--- NOTE | 2021-10-05 14:54 | NUR ---
PT LAYING IN BED IN LF RESTING WITH EYES CLOSED. PT NOTED TO BE SNORING. NAD NOTED AT THIS TIME.
--- NOTE | 2021-10-05 15:27 | NUR ---
PATIENT HIT CALL LIGHT ASKING FOR ASSISTANCE WITH A BALL FOR HIS FOOT. VISCOSITY INSPECTOR WENT TO ASSIST PATIENT DUE TO NURSE AND MINING AND QUARRYING MACHINERY REPAIRER BEING TIED UP IN ANOTHER ROOM. HE HAD USED HIS URINAL AND NEEDED HIS DIAPER REATTACHED. VISCOSITY INSPECTOR ASSISTED IN ATTACHING DIAPER, EMPTIED 325 ML OUT OF URINAL, THREW LUNCH TRAY AWAY AND COVERED PATIENT WITH ANOTHER BLANKET. PATIENT WAS CONTENT WHEN VISCOSITY INSPECTOR LEFT ROOM
--- NOTE | 2021-10-05 17:11 | NUR ---
PT CALLED TO NURSES STATION STATING "I NEED TO BE CHANGED." AMANDA SANCHEZ AND MYSELF IN TO PT'S ROOM TO CHANGE PATIENT. PT NOTED TO HAVE A SMALL BM. OPTIFOAM DRESSING REMOVED AT THIS TIME. NO DRAINAGE OR ODOR NOTED. DRESSING CHANGE COMPLETED AT THIS TIME. CLEANSED WOUND TO LEFT BUTTOCKS WITH NS, SANTYL APPLIED AND COVERED WITH OPTIFOAM DRESSING. CLEANSED PT'S RIGHT HEEL WITH NS AND APPLIED SKIN PREP PER MD ORDERS. PT C/O HIS SCROTUM BURNING. BARRIER CREAM APPLIED DURING BREIF CHANGE. PT REPORTS RELIEF. PT PULLED HISSELF UP IN BED AND COVERS PLACED BACK OVER PT. PT DENIES ANY FURTHER C/O OR NEEDS.
--- NOTE | 2021-10-05 18:30 | NUR ---
PT CALLED TO NURSES STATION STATING HE HAD AN ACCIDENT AND NEEDED TO BE CLEANED UP. UPON CHECKING PT. PT STATES "IT JUST COMES I CAN'T CONTROL IT. IT'S MORE PEE THAN ANYTHING BUT I DID DO THE OTHER TOO" AGAIN EDUCATED PT THAT THE ANTIBIOTICS WILL TAKE TIME OT GET OUT OF HIS SYSTEM AND THAT HE WAS STARTED ON THE ANTIBIOTICS BECASUE OF THE FREQUENT STOOLS AND HAVING HIS GALLBLADDER OUT CAN CAUSE FREQUENT STOOLS AFTER EATING, THAT HE IS NOT HAVING DIARRHEA JUST SOFT STOOLS.
[2021-10-06 08:00] VITALS: BP 116/66; TEMP 97.5
--- NOTE | 2021-10-06 11:51 | NUR ---
0900 PT NOTIFIES THIS NURSE THAT PATIENT NO LONGER TAKES ALOGLIPTIN PER MD ORDERS. MEDICATION IS NOT AVAILABLE TO GIVE TO PATIENT. PATIENT HAD LARGE LOOSE BOWEL MOVEMENT THAT IS NOTED TO HAVE GREEN COLOR TO IT. PATIENT IS CLEANED UP AND WOUND CARE TO LEFFT BUTTOCKK IS CLEANED WITH NS THE =N SANTLY IS APPLIED TO THE SLOUGH PART OF THE WOUND BED. wOUND IS THEN COVERED WITH BORDERED OPTIFORM DRESSING. PATIENT RIGHT HEEL IS CLEANED WITH NS THEN PATTED DRY. HEEL IS THEN WIPED WITH SKIN PREP THOROUGHLY. HEEL PROTECTORS ARE REPLACED AND PATIENT IS ASSISTED IN REPOSITIONING FOR COMFORT. CALMASEPTINE CREAM IS APPLIED TO BRYSON FOLDS AND TESTICULAR IRRITATION AREAS. PATIENT TOLERATED WELL. PATIENT IS NOTED TO REQUIRE VERBAL QUES WELL DEMONSSTRATION TECHNIQUES TO FOLLOW COMMANDS TO HELP HOLD HIMSELF OVEER TO ALLOW FOR INCONTIENENCE CARE TO BE PERFORMED. CALL LIGHT AND BEDSIDE TABLE IS WITHIN REACH. PATIENT IS AT BEDSIDE AND ENCOURAGE TO CALL FOR ANY QUESTIONS, NEEDSM, OR CONCERNS.
--- NOTE | 2021-10-06 18:05 | NUR ---
1100 PATIENT CALLED TO REPORT HAVING A BOWEL MOVEMENT. THIS NURSE ENTERS ROOM, PT LAYING IN SUPINE LOW FOWELERS POSITION. NURSE CHANGED PATIENT DIAPER AND CLEANED UP PATIENT. LARGE GREEN SOFT BM NOTED. PATIENT TESTICLES ARE REDDENED WITH EXCORIATION NOTED. CALMASEPTINE APPLIED AND PATIENT ASSISTED REPOSITIONED IN BED WITH WEDGE PLACED UNDER KNEES TO ELEVATE HEELS OFF OF BED. EXTENSIVE EDUCATION PROVIDED THAT DECREASE IN JUICE INTAKE WILL LIEKLY DECREASE BOWEL MOVEMENT FREQUENCY. PATIENT IS NOT OPEN TO EDUCATION AT THIS TIME. CALL LIGHT AND BEDSIDE TABLE IS WITHIN REACH.
--- NOTE | 2021-10-06 18:12 | NUR ---
PATIENT HAD ANOTHER LARGE BOWEL MOVEMENT. WOUND CARE PERFORMED TO LEFT BUTTOCK DUE TO FECAL MATERIAL CONTAMINATING UNDERNEATH WOUND DRESSING. PATIENT IS ENCOURAGED TO CALL NURSING STAFF BEFORE HE HAS A BOWEL MOVMENT SO THAT HE CAN BE ASSISTED TO BSC. THIS NURSE TALKED AT LENGTH TO PATIENT ABOUT USING THE SWINGBED PROGRAAM TO STRENGTHEN HIMSELF TO BE ABLE [facility] THAT HE WILL BE SOMEWHAT INDEPENDANT IN SELF CARE. PATIENT DOES NOT SEEM OPEN TO EDUCATION, ONLY STATING THAT THE LOOSE BOWEL MOVEMENTS ARE FROM THE ANTIBIOTICS. NURSE ATTEMPTED TO ENDUCATE THAT MANY PEOPLE OFTEN HAVE LOOSE BOWEL MOVEMENTS IN RELATION TO THEIR DIET AFTER GALLBLADDER REMOVAL. PATIENT STATES THAT THE LOOSE BOWEL MOVEMENTS ARE UNEXPECTED ADN THAT HE CANT GET TO BSC FAST ENOUGH SO THAT HE DOES NOT HAVE BM IN DEPENDS. EDUCATED THAT WE CAN TRY "TIMED TOILETING TO STRENGTH AND REGAIN SOME OF THE DECONDNITIONING AND GET HIS BODY ACCUSTOMED TO HAVVE BM IN A TOILET. HE ACKNOWELDES AND AGREES. WILL CONTINUE TO MONITOR, CALL LIGHT IN REACH.
[2021-10-06 20:31] VITALS: BP 106/69; TEMP 98.5
--- NOTE | 2021-10-07 05:31 | NUR ---
PT RESTING QUITELY IN BED WITH EYES CLOSED. RESPIRATION EVEN AND UNLABORED. PT ALERT TO VERBAL STIMULI. PT INCONTIENT OF BOWEL AND BLADDER. PT NOTED TO BE UPSET WITH STAFT BECAUSE HE CONTINUES TO HAVE LOOSE STOOLS. PT REQUESTED MULTIPLE TIME TO HAVE NEW ORDERS FOR MEDICATION TO STOP THE LOOSE STOOLS. MD NOTIFIES ABOUT THE PT LOOSE STOOLS AND DENIES ORDERS FOR MEDICATION TO ASSIST WITH LOOSE STOOLS. PT INFORMED OF MD DECISION. PT IS AWARE OF WHEN HE HAS TO HAVE A BOWEL MOVEMENT AND REFUSES TO CALL FOR ASSISTANCE TO BSC OR BEDPAN. PT STATED DURING SHIFT "IF I KNEW IT WAS GOING TO TAKE YOU A WHILE TO GET HERE I WOULD HAVE HELD IT IN LONGER". PT ENCOURAGED TO INCREASE FLUID INTAKE AND TO LISBET FOR ASSISTANCE. PT HAS RASH TO GENTILES RELATD TO MULTIPLE EPISODES OF INCONTIENTS. NO ACUTE DISTRESS NOTED. CALL LIGHT IN REACH.
[2021-10-07 08:00] VITALS: BP 122/64; TEMP 97.5
--- NOTE | 2021-10-07 14:23 | NUR ---
0930 PATIENT IS ASSISTED BY THIS NURSE AND Juliette SHEN TO GET PATIENT ON BEDSIDE COMMODE. PATIENT SITTING ON BSC FOR 25 MINUTES. PATIENT HAD LARGE SOFT BOWEL MOVMENT. FSBS RECHECK IS 65MG/DL. ORANGE JUICE GIVEN TO PATIENT. AFTER PT HAD BM, WOUND CARE TO R GM. PT TOLERATED WELL. PT IS NOTED TO EXCORIATION TO TESTICULAR AREA . CALMASEPTINE CREAM APPLLIED AFTER PERICARE IS PROVIDED. DEPENDS PUT ON PATIENT AND THEN PATIENT ASSSISTED BACK INTO BED WITH 2 PERSON ASSIST. PT HEELS ARE ELEVATED AND FLOATED ON WEDGE. PATIENT STATES THE NORCO HAS HELPED WITH HIS PAIN. CALL LIGHT IS IN REACH AND BEDSIDE TABLE IS WITHIN REACH. WILL CONTINUE TO MONITOR.
--- NOTE | 2021-10-07 14:27 | NUR ---
1120 PATIENT IS RESTING WITH EYES CLOSED AND RESPIRATIONS ARE EVEN AND UNLABORED. FSBS IS NOW 180MG/DL. PATIENT AWAKENS EASILY TO VERBAL STIMULI. PATIENT STATES HE IS RESTING AND DOES NOT WANT TO GET UP TO GET NANCY BSC AT THIS TIME. WILL CONTINUE TO MONITOR.
--- NOTE | 2021-10-07 14:29 | NUR ---
1225 PT ASSISTED TO BSC AND HAD A BOWEL MOVEMENT. PATIENT IS REORIENTATED TO TIME AND EVENT. PATIENT STATES TO STAFF THAT HE HAD BEEN LEFT PREVIOUSLY ON BSC FOR 3 HOURS. STAFF ASSURS PT THAT HE HAD ONLY BEEN ON THE BSC FOR ABOUT 20 MIN AND HAD ONLY BEEN UP OOB ONCE TO BSC IN PAST 2 DAYS. PT STATES THAT HE MUST BE CONFUSED. ATTEMPTS TO REORIENTAT PATIENT ARE ACCEPTING OF LOCATION, DATE. WILL CONTINUE TO MONITOR. CALL LIGHT IN REACH
--- NOTE | 2021-10-07 16:34 | NUR ---
PATIENT IS LAYING IN BED WATCHING TV. HE IS REPOSITIONED FOR COMFORT AND WEDGE PLACED TO RIGHT SIDE FOR PRESSURE RELIEF TO COCCYX AREA. CALL LIGHT AND BEDSIDE TABLE IS WITH IN REACH. PATIENT REQUESTS ICE AND DIET SPRITE. BROUGHT TO PATIENT AND PATIENT ASSISTED TO SITTING UPRIGHT IN HIGH FOWLERS POSITION TO DRINK. STATES HE IS STILL SORE TO HIS "BOTTOM" BUT STATES HE DOES NOT WAZNT ANYTHING FOR PAIN AT THIS TIME. WILL MONITOR.
--- NOTE | 2021-10-07 18:19 | NUR ---
1715 PT CALLED FOR ASSISTANCE TO BSC. NURSE ASSISTED TO BSC BY THIS NURSE. PT REFUSED TO SIT BACK ON BSC AND URINATED ON FLOOR. HE TOLD NURSE "SEE WHAT YOU MADE ME DO,NOW CLEAN IT UP". THIS NURSE EXPLAINED TO ALEJANDRO THAT HE NEEDED TO SIT BACK ON BSC TOO HAAVE BACK SUPPORT AND FULLY UTILIZE THE ARM SUPPORTS OF BSC. PT IS ARGUMENTATIVE, STATING HE IS HURTING. NURSE ENCOURAGES PATIENT TO SIT ON BSC FOR 10 MINUTES IN ORDER TO ALLOW HIM AN OPPORTUNITY TO HAVE A BM. THIS NURSE GOES AND GETS HIS NORCO ORDERED. GIVEN TO PATIENT WITH DIET SPRITE FO RC/O PAIN. PATIENT HAD A BOWEL MOVEMENT. PATIENT ASSISTED TO STANDING POSITION WITH WALKER ASSISTANCE AND NURSE ASSISTANCE. PERINEAL CARE AND WOUND CARE TO RIGHT BUTTOCK PROVIDED WITH NEW DRESSING TO RIGHT BUTTOCK APPLIED. DEPENDS PLACED ON PT. PATIENT ASSISTED IN BED AND WEDGE PLACED UNDER HEELS. COVERS PULLED UP ON PT AND CALL LIGHT PLACED WITHIN REACH.
--- NOTE | 2021-10-07 18:29 | NUR ---
1720 PATIENT CALLED STATING HE WANTED TO WEDGE MOVED FROM HIS HEELS TO HIS BACK. THIS NURSE GOES TO PATIENT ROOM AND EXPLAINS IMPROTANCE OF ROTATION OF WEDGE FOR PRESSURE RELIEF TO HEELS, RIGHT SIDE, AND LEFT SIDE ALTERNATED. PATIENT TELLS NURSSE THAT HE HAS BEEN HAVING THE WEDGE UNDERHIS HEELS FOR HOURS. THIS NURSE EXPLAINS THAT THE WEDGE HAS BEEN ROTATED EVERY TWO HOURS TO PROMOTE SKIN INTEGRITY. PT INSISTS WEDGE BE PLACED UNDER RIGHT SIDE. NURSE REPOSITIONED PATIENT WITH WEDGE UNDER RIGHT SIDE. HEEL PROTECTORS REMAIN IN PLACE. CALL LIGHT AND BEDSIDE TABLE IN REACCH OF PATIENT.
--- NOTE | 2021-10-07 18:32 | NUR ---
PT WATCHING TV, STATES THAT HIS PAIN IS NOW A 2 OR 3 FROM THE 8 OF EARLIER. HE STATES THE PAIN MEDICINE HELPS HIM. NURSE ENCOURAGED HIM TO CONTINUE TO USE TIMEDTOILEING AND EXPLAINED THATBY DOING THIS, TODAY PATIENT HAS ONLY HAD 3 BMS AND HAD NO INCONTINENT EPISODES IN THE BED, WHICH IS VERY BEENFICIAL FOR WOUNDS AND TO INCREASE OVERAL CIRCULATION. PATIENT TELLS NURSE IT HELPS BUT HE DOES NOT LIKE BEING LEFT N BSC FOR "3 HOURS" NURSE EXPLAINS THAT PATIENT HAS ONLY BEEN ON BSC FOR A MAXIMUM OF 15 AT A TIME TODAY. PT IS REORIENTATED TO TIME, DAY, DATE. PT DENIES FURTHER NEEDS OR COMPLAINTS. CALL LIGHT AND BSC PLACED WITHIN REACH. PT BLANKET PULLED UP ON SHOULDERS REQUESTED, DOOR CLOSED PER REQUEST. WILL CONTINUE TO MONITOR.
[2021-10-07 20:53] VITALS: BP 105/64; TEMP 98.6
--- NOTE | 2021-10-07 21:23 | NUR ---
PM MEDS GIVEN AT THIS TIME. PT TOLERATED WELL AND WAS ABLE TO SWALLOW PILLS. PT ABLE TO MOVE EXTREMITIES TO TRANSFER FROM SIDE TO SIDE IN BED WHILE ALSO BEING ABLE TO USE THE CALL LIGHT TO LET STAFF KNOW HE NEEDS TO USE THE URINAL. PT STILL HAS HEEL PROTECTORS TO BILATERAL FEET AND COMPLAINED AT THIS TIME OF NOT HAVING A WEDGE UNDERNEATH RIGHT SIDE. VP [employer] PUT WEDGE UNDERNEATH PT AT THIS TIME.
--- NOTE | 2021-10-08 02:30 | NUR ---
PT PUT OUT 400 ML IN URINAL AT THIS TIME. PT REMEMBERS GETTING UP THE BSC WITH DAY SHIFT AND LIKES THE IDEA OF GETTING TO DO THAT AGAIN. CONSULTING IT ARCHITECT EDUCATED ON THE BENEFITS OF GETTING UP THE BSC IMPROVING CIRCULATION TO UPPER AND LOWER EXTREMITIES AND MINIMIZING PROGRESSION OF WOUNDS ON PT'S BODY.
[2021-10-08 08:00] VITALS: BP 105/65; TEMP 98.4
--- NOTE | 2021-10-08 09:20 | NUR ---
ENGROSSER ENTERED PATIENTS ROOM TO ADMINISTER MORNING MEDS. PATIENT WAS SITTING ON SIDE OF BED FINISHING UP BREAKFAST. PATIENT EXPRESSED THAT HE WANTED TO LAY BACK DOWN HE WAS DONE WITH BREAKFAST. ENGROSSER ENCOURAGED PATIENT TO BE ASSISTED TO BEDSIDE COMMODE. PATIENT AGREED BUT STATED HE NEEDED TO SIT THERE A WHILE ON THE BEDSIDE COMMODE. PATIENT ALSO STATED THAT HE HAS BEEN DOING VERY WELL WITH GETTING UP TO BEDSIDE COMMODE WITH ASSISTANCE, THAT HE "HASN'T MESSED UP HIS BRIEF IN OVER A WEEK". ENGROSSER WORKED ON Friday10/05/21 AND KNOWS THAT HE DID, ON SEVERAL OCCASIONS, HAVE BOWEL MOVEMENTS AND URINATED IN BRIEF. ALSO ON Friday10/04/21 WHEN ENGROSSER HAD PATIENT THAT HE HAD BOWEL MOVEMENTS IN HIS BRIEF.
--- NOTE | 2021-10-08 12:02 | NUR ---
ACID CLEANER CAME TO STUDENT LOAN COUNSELOR AND INFORMED THAT PT WAS WORKING WITH PATIENT AND ASSISTED HIM TO BEDSIDE COMMODE. ACID CLEANER STATED THAT PT TOLD HER THAT THERE WAS A LOT OF BLOOD IN PATIENT'S STOOL. STUDENT LOAN COUNSELOR ENTERED ROOM PT WAS ASSISTING PATIENT TO CHAIR. UPON OBSERVATION OF COMMODE, THERE WAS STOOL WITH BRIGHT RED BLOOD STREAKED AND 1 SMALL DROP OF BRIGHT RED BLOOD IN COMMODE. CHARGE NURSE NOTIFIED AND WILL NOTIFY DR. MULLER. PATIENT ON ELIQUIS.
--- NOTE | 2021-10-08 16:55 | NUR ---
DRESSING CHANGE DONE TO LEFT BUTTOCK. CLEANED WITH NORMAL SALINE, APPLIED SANTYL TO 4X4 TO WOUND BED, APPLIED DRESSING TO BUTTOCK. RIGHT HEAL CLEANED WITH NORMAL SALINE. BLOOD NOTED TO BED FROM HEAL. WRAPPED WITH GAUZE IN CASE IT CONTINUES TO BLEED. ALSO TOOK IV OUT OF RIGHT HAND.
[2021-10-08 20:31] VITALS: BP 103/67; TEMP 97.5
--- NOTE | 2021-10-08 21:15 | NUR ---
PT ABLE TO LET NURSING STAFF KNOW OF WANTING TO GET UP TO THE BSC FOR A BM AT THIS TIME. PT WAS A ONE PERSON ASSIST WITH A WALKER TO AMBULATE TO THE BSC AT THIS TIME. PT HAS A LOOSE MEDIUM STOOL AT THIS TIME BUT ABLE TO AMBULATE X'S ONE PERSON ASSIST. PT TOLERATED WELL.
[2021-10-09 08:00] VITALS: BP 103/68; TEMP 98.3
--- NOTE | 2021-10-09 08:30 | NUR ---
WOUND CARE PROVIDED PER MD ORDERS.
--- NOTE | 2021-10-09 09:55 | NUR ---
PATIENT ESCORTED VIA WHEELCHAIR BY STEP SON AND ACCOMPANIED BY THERAPY TO GO TO OUTSIDE APPOINTMENT. NO DISTRESS NOTED AT THIS TIME
--- NOTE | 2021-10-09 13:36 | NUR ---
PATIENT RETURNED VIA WHEELCHAIR FROM OUTSIDE APPOINTMENT. BULK GAS SPECIALIST FROM ER ESCORTED PATIENT TO NURSE'S STATION, DROPPED OFF LAB ORDERS AND LEFT. RATING SPECIALIST WHEELED PATIENT TO ROOM WHERE HE EXPRESSED NEED TO SIT ON BEDSIDE COMMODE. PATIIENT STATES THAT HE DID NOT EAT LUNCH, ONLY AN ICE CREAM SO JALYN LIVE CALLED TO HAVE A LUNCH TRAY BROUGHT TO PATIENT.
--- NOTE | 2021-10-09 15:48 | NUR ---
Lean Manufacturing Engineer spoke with Paulette at Dr. Mart's office and she will be sending progress notes from the visit for MD here to review.
[2021-10-09 17:11] LABS: PLATELET COUNT 138 K/uL (142-355)
[2021-10-09 17:28] LABS: POTASSIUM 4.1 mmol/L (3.6-5.2)
--- NOTE | 2021-10-09 20:00 | NUR ---
ROUNDS MADE. PT IS QUIET. PT'S STATES HE IS NOT HUNGRY. FOOD ITEMS ARE ON HIS BEDSIDE TABLE. PM ASSESSMENT COMPLETED. CALL [facility] IN [place].
[2021-10-09 20:18] VITALS: BP 102/60; TEMP 97.9
--- NOTE | 2021-10-09 23:52 | NUR ---
PT IS RESTING WITH EYES CLOSED. BEDSIDE TABLE IN [place].
[2021-10-10 08:00] VITALS: BP 101/60
--- NOTE | 2021-10-10 11:24 | NUR ---
Grocery [employer] spoke with Aislinn patients and let her know that a NOMNC would be issued today related not making gains. Also patients oncology follow up appointment from the previous day and she has opted for patient to return home on hospice. Will contact hospice and set up. made aware.
--- NOTE | 2021-10-10 13:25 | NUR ---
Spoke with patient's Aislinn. Information sent to [facility] per family request. Maribell also spoke with Anais at hospice and let her know that family wanted to attempt to take patient home, but may have to transfer to LTC under hospice if she is unable to care for him at home. Family really wants to have him home as long as possible.
--- NOTE | 2021-10-10 17:01 | NUR ---
Met with resident in room, provided NOMNC. Explained that last covered day is 10/12/21 and he has the right to appeal the NOMNC. Patient stated he was not interested in appealing. Opportunity for questions given, none voiced. Verbalized understanding of NOMNC, then signed NOMNC.
--- NOTE | 2021-10-10 17:07 | NUR ---
Patient has been watching television and talking to on telephone today.
--- NOTE | 2021-10-10 17:17 | NUR ---
0837 PATIENT ASSISSTED TO BEDSIDE COMMODE. PATIENT HAD LARGE BM. ASSISTED BACK INTO BED. WOUND CARE TO RIGHT HEEL. PATIENT COMPLAINS OF PAIN GENERALIZED.RATES A 6. WILL MONITOR.
--- NOTE | 2021-10-10 17:23 | NUR ---
0920 TRAM 7.5 GIVEVN FOR GENERALIZEDD PAIN. PATIENT GIVEN PEANUTS PER REQUEST. PATIENT VERY DEPRESSED AND TEARFUL. TELLS NURSE HE JUST TALKED TO HIS AND SHE IS SIGNING HIM UP FOR HOSPICE BECUASE HE IS DYING. HE TELLS NURSE HE WENT TO [facility] YESTERDAY AND WAS TOLD HE HAD CANCER BUT DDIDNDT KNOW HE WAS DYING UNTIL HIS CALLED HIM TODAY. ATTEMPT TO REASSURE PATIENT THAT HOSPICE SERVICES WOULD ALLOW COMFORT AND SYMPTOM MANAGEMENT TO HELP HIM WITH GOALS OF BEING ABLETO [facility] AT HOME. PATIENT DOESNT SEEM ACCEPTING OF THIS INFORMATION. WILL CONTINUE TO MONITOR.
--- NOTE | 2021-10-10 17:41 | NUR ---
1100 THERAPY HERE AND PUTS PATIENT IN GERICHAIR. PATIENT AGREES TO SIT IN CHAIR FOR A WHILE AFTER IT WAS EXPLAINED TO HIM THAT IT WOULDD HELP WITH PRESSURE RELIEF FOR WOUND ON BUTTOCK. PATIENT TELLS NURSE HE DOESNT WANT TO DO ANYTHING BECAUSE HE IS DYING. NURSE EXPLAINED TO PATIENT THAT PRESSURE RELIEF WOULD BE COMFORTING FOR WOUND AND HELP WITH PAIN. CALL LIGHT IN REACH, PHONE IN REACH WELL BEDSIDE TABLE.
--- NOTE | 2021-10-10 17:44 | NUR ---
1200 PATIENT CALLS WANTING TO GET INTO BED. NURSE IS ABLE TO [facility]. PATIENT STATES HE DOESNT WANT THE KITCHEN LUNCH, THAT HE WOULDD LIKE A HOTDOG. THIS NURSE TALKS WITH UR NURSE, SHE IS ABLE TO OBTAIN HOTOG AND WELSH FRIES FROM DAIR[facility]Z. THIS NURSE SETS UP THE FOOD FOR PATIENT. HE BEGINS EATING SAYING "ITS THE BEST FRIES AND HOTDDOG" HE EVER HAD. CALL LIGHT REMAINS AT SIDE WITH BEDSIDE TABLE.
--- NOTE | 2021-10-10 17:49 | NUR ---
1300 PATIENT CALLS NURSE WANTING TO GET BACK IN BED. THIS NURSE ASSISTS PATIENT BACK INTO BED. HE IS NOTED TO BE WEAK AND HAS INCREASED DIFFICULTY STANDING. PATIENT IS REPOSITIONED BACK INTO THE BED, BLANKETS PUT ON HIM REQUESTED. HEELS ARE ELEVATED. CALL LIGHT IN REACH, BESIDE TABLE IN REACH.
--- NOTE | 2021-10-10 20:26 | NUR ---
FLOW COORDINATOR IS IN PT'S ROOM, PT IS LAYING IN THE LOW FOWLERS POSITION WATCHING TV. PT'S 0800 BS LEVEL WAS 65 PT HAS BEEN GIVEN A CUP OF GRAPE JUICE. PT DENIES ANY NEEDS AT THIS TIME AND SHOWS NO SIGNS OF DISTRESS.
[2021-10-10 20:52] VITALS: BP 96/59; TEMP 97.9
--- NOTE | 2021-10-10 23:39 | NUR ---
PT IS ASLEEP. BREATHING IS EVEN AND NONLABORED. NO DISTRESS IS NOTED AT THIS TIME.
--- NOTE | 2021-10-11 18:09 | NUR ---
0715 PT LAYING IN BED ,VERY WITH DRAWN, STATES HE DDOESNT FEEL LIKE PARTICIPATING IN CARE TODAY. HE STATES HE DOESNT SEE ANY POINT TO IT HE IS DDYING ANYWAY. LUNGS ARE DIMINSHED BILATERALLY. BS ARE ACTIVE TO ALL QUADDRANTS. PATIENT ABD IS TENDDER TO RUQ. PATIENT HAS WOUND TO SACRAL AREA WITH OPTIFORM IN PLACE. WOUND CARE PROVICED. AREA IS CLEANED WITH NORMAL SALINE, SANTYL APPLIED THEN OPTIFORM SACRAL DRESSING APPLLIED. PATIENT TOLERATED WELL. SKIN PREP APPLIED TO RIGHT HEEL AFTER HEEL IS CLEANED WITH NORMAL SALINE AND PATTED DRY. SOCK REAPPLIED. PAT TOELRATED WELL. DEPENDS IS IN PLACE AND DRY. CALL LIGHT IS WITH IN REACH WELL BEDSIDE TABLE.
--- NOTE | 2021-10-11 18:14 | NUR ---
0725 BS 61, 2 ORNGE JUICE 4 OZ CUPS WITH HONEY GIVEN WILL MONITOR. PAT IS ALERT AND ORIENTATED
--- NOTE | 2021-10-11 18:15 | NUR ---
0900 BS IS 81MG/DDL, REPEAT BP IS 87/58. PATIETN IS ALERT. TELLS NURSE HE WAANTS TO AND DOES NOT WANT TO BE IN PAIN. HE TELLS NURSE HE DOES NOT WANT TO DO ANY THERAPY TODAY. PT TO ARRIVE A LITTLE AFTER 10. ENCOURAGE PT TO EAT AND DRINK MUCH POSSIBLE.
--- NOTE | 2021-10-11 18:15 | NUR ---
0805 BP IS 88/52 PAT COMPLAINES OF PAIN TO SACRAL AREA. WILL MONITOR PT IS HYPOTENSIVE AT THISS TIME.
--- NOTE | 2021-10-11 18:17 | NUR ---
1020 PT BP IS 84/[address] MULLER NOTIFIED OF CONTINUED HYPOTENSION, GLIPIZIE WELL SEMGLEE WAS HELD. PT CONTINUES TO COMPLAINE OF PAIN TO SACRAL AREA AND GENERALIZED PAIN. DR MULLER GIVES ORER FOR NORMAL SALINE BOLUS OF 500 ML THEN TO GIVE REMAINING NS AT 125 ML/HR AFTER OBTAINING NEW IV SITE. DR MULLER ALSO STATES TO INFORM HIM WHEN PT FAMILY ARRIVES HE WANTS TO HVE A FAMILY MEETING IN [facility] TO PLAN OF CARE.
--- NOTE | 2021-10-11 18:20 | NUR ---
1030 THIS NURSE WAS IN ROOM TALKING WITH PATIENT ABOUT ORDERS FOR IV SITE WHEN PT AND SON ARRIVE. PT ASKED NURSE TO WAIT TO TALK WTIH DR MULLER BEFORE STARTING IV SITE. PT TELLS NURSE THAT HE DOEWS NOT WANT IV HYRATION DUE TO HYPOTENSION, HE WANTS HIS PAIN MEDICINE FOR HIS PAIN, HE DOESNT THINK THAT ANY OF THE OTHER PLANS OF CARE ARE BENEFICIAL DUE TO HIS PROJECTED PROGNOSIS. DR. MULLER NOTIFIED OF PT REQUEST WELL FAMILY ARRIVAL. STATES HE WILL MEET WITH THEM SOON.
--- NOTE | 2021-10-11 18:23 | NUR ---
1040 DR MULLER IN ROOM AND TALKS AT LENGTH WITH PT, HIS SON, AND HIS . PATIENT IS ALERT AND ORIENTATED. HE TELLS DR MULLER THAT HE DOES NOT WANT ANY FURTHER AGGRESSIVE CARE, THAT HE WANTS COMFORT CARE, AND HE DOES NOT WANT CPR, INTUBATION, OR ARTIFICIAL VENTILATION OR LIFE SUPPORT MEASURES. PAT FAMILY INCLUDDING AND SON ARE PRESENT AND ACKNOWLEDGE PATIENT REQUEST ANDDD WISHES. ORDERS ARE RECIEVED VERBALLY AND REPEATED BACK FOR VERIFICATION TO DISCONTINUE PREVIOUS ORDERS FOR IV HEPLOCK, IVF DISCONTINUED.
--- NOTE | 2021-10-11 18:26 | NUR ---
1050 NORCO 7.5/325 MG GIVECN FOR COMPLAINTS OF PAIN AFTER DR MULLER CONSENTED THAT PT COULD RECIEVE PAIN MEDICATION AT THIS TIME WITH ACKNOWELEDDGEMENT OF BP OF 92/58
--- NOTE | 2021-10-11 18:28 | NUR ---
1230 FAMILY IN [facility] WITH PATIENT . PATIENT STSATES THAT HIS PAIIN HAS EASED IOFF SOME. FRUIT PLATE BROIUGHT TO PT ROOM PER REQUEST. PT ABLE TO EAT A FEW BITES OF FRUIT . WILL MONITOR
--- NOTE | 2021-10-11 18:29 | NUR ---
1730 PT COMPLAINS OF PAIN TO SACRAL AREA. MNORCO GIVEN PER ORDER. PT TALKS AT LENGTH WITH NURSE. EXPRESSES THANKFULNESS OF CARE HE HAS RECIEVED. PT STAES HE IS PLEASED WITH THE COMPASSION AND CARE HE HAS BEEN SHOWN WELL FAMILIAL SUPPORT GIVEN.
--- NOTE | 2021-10-11 18:31 | NUR ---
PT RESTING QUIETLY WITH EYES CLOSED. ASWAKENS EAILY TO VERBAL STIMULI STATES THAT HIS PAIN IS BETTER. WILL REPORT TO ONCOMING SHIFT. CALL LIGHT IN REACH.
--- NOTE | 2021-10-11 19:56 | NUR ---
COLOR CHECKER ROVING OR YARN IS IN PT'S ROOM, PT IS LAYING IN THE LOW FOWLERS POSITION WITH ALL OF THE LIGHTS ON IN THE ROOM. PT HAS A DEPRESSED ATTITUDE AND IS FALLING ASLEEP WHILE COLOR CHECKER ROVING OR YARN IS SPEAKING TO HIM. PT HAS REFUSED TO GET HIS BLOOD SUGAR CHECKED BY PCT STATING "I AM DYING, DO NOT STAB ME ANYMORE". PCT DID NOT CHECK BLOOD SUGAR PER PT'S REQUEST THEREFORE COLOR CHECKER ROVING OR YARN HELD NIGHT TIME INSULIN DUE TO PT MAINTAINING A LOW BLOOD SUGAR LEVEL THROUGHOUT THE DAY PRIOR TO COLOR CHECKER ROVING OR YARN'S SHIFT REPORTED TO COLOR CHECKER ROVING OR YARN BY DAYSSDFT NURSE. PT IS COMPLAINING OF PAIN IN HIS BUTTOCK AREA WHERE PRESSURE ULCER IS LOCATED. COLOR CHECKER ROVING OR YARN HELD NORCO DUE TO PT'S BLOOD PRESSURE BEING 97/60 AND INSTEAD GAVE PT HIS SCHEDULED DOSE OF GABEPENTIN. COLOR CHECKER ROVING OR YARN ALSO WITH ASSISTANCE FROM PCT CHANGED PT'S DEPENDS WITH A MODERATE SIZED FORMED BOWEL MOVEMENT, PT'S CURRENT SACRAL BANDAGE WAS SOILED SO COLOR CHECKER ROVING OR YARN REMOVED PREVIOUS DRESSING AND CLEANED WOUND WITH NORMAL SALINE AND PATTED DRY THEN COVERED WOUND WITH A FRESH OPTIFOAM DRESSING. PT WAS THEN ASSISTED TO THE LEFT SIDE AND SUPPORTED BY PILLOWS OFF OF THE BUTTOCK AREA. PT STATED THAT HIS PAIN WAS MUCH BETTER AFTER BEING REPOSITIONED TO THE LEFT SIDE. PT IS SHOWING NO SIGNS OF DISTRESS AT THIS TIME AND JUST WANTS TO BE LEFT ALONE TO REST. WILL CONTINUE TO MONITOR.
[2021-10-11 20:00] VITALS: BP 97/60; TEMP 98.2
--- NOTE | 2021-10-12 02:56 | NUR ---
PT IS AWAKE AND ALERT REQUESTING SOME GRAPE JUICE. SOME GRAPE JUICE WAS PROVIDED TO PT. HE IS SITTING IN HIGH FOWLERS WATCHING TV. PT DENIES ANY PAIN OR OTHER NEEDS AT THIS TIME.
[2021-10-12 08:00] VITALS: BP 88/60; TEMP 98
--- NOTE | 2021-10-12 10:59 | NUR ---
10/12/21 1100 PT DISCHARGED TO [facility].INSTRUCTIONS GIVEN TO .JENNI FROM HOSPICE CALLED WILL MEET PT/FAMILY AT THEIR HOUSE AT 12 NOON.INSTRUCTIONS SIGNED.TOOK OUT VIA WHEELCHAIR [facility]
== END 2021-10-12 10:48 | disposition home health service (06) | DRG 949 ==
LOC: SWING 10:49 → MED/SURG 12:19
PROVIDERS: Family Medicine; ADMIT Internal Medicine Endocrinology, Diabetes & Metabolism; ATTEND Internal Medicine Endocrinology, Diabetes & Metabolism
DX: Z48.815 Encounter for surgical aftercare following surgery on the digestive system (principal); C22.1 Intrahepatic bile duct carcinoma; R17 Unspecified jaundice; D64.9 Anemia, unspecified; E11.9 Type 2 diabetes mellitus without complications; M62.81 Muscle weakness (generalized); R26.2 Difficulty in walking, not elsewhere classified; Z74.1 Need for assistance with personal care; I48.91 Unspecified atrial fibrillation; N18.9 Chronic kidney disease, unspecified; I12.9 Hypertensive chronic kidney disease with stage 1 through stage 4 chronic kidney disease, or unspecified chronic kidney disease; D35.02 Benign neoplasm of left adrenal gland; N40.0 Benign prostatic hyperplasia without lower urinary tract symptoms; K21.9 Gastro-esophageal reflux disease without esophagitis; G47.33 Obstructive sleep apnea (adult) (pediatric)
CPT/HCPCS: 36415; 80053; 81000; 82306; 82607; 82728; 82746; 83540; 83970; 84165; 85014; 85018; 85027; 86316; 86850; 86900; 86901; 86922; 87015; 87045; 87077; 87081; 87186; 87324; 87449; 87635; 87899; J0744; J2405; J3490; P9016; U0003